=== PATIENT | male | born 1995 | race Caucasian/White ===

== ENCOUNTER 2019-09-03 18:41 | Emergency (ER) | payer MEDICAID ==
[~2019-09-03] VITALS: Ht 170.2 cm; Wt 77.0 kg
[2019-09-03 18:52] VITALS: BP 119/70
== END 2019-09-04 01:04 | disposition left against medical advice (07) ==
LOC: ER 18:41
DX: Z53.21 Procedure and treatment not carried out due to patient leaving prior to being seen by health care provider (principal)